=== PATIENT | female | born 1945 | race Caucasian/White ===

== ENCOUNTER 2017-08-29 09:10 | Day surgery (SDC) | payer MEDICARE, OTHER ==
[~2017-08-29] VITALS: Ht 165.1 cm; Wt 70.8 kg
[~2017-08-29 09:10] MED LIST: ALEVE220 MG PO; ARMOUR THYROID120 MG PO; ASPIR-LOW81 MG PO; MAXZIDE 37.5 MG-1 EA PO; TOPROL XL100 MG PO; TROSPIUM CHLORI20 MG PO
== END 2017-08-29 11:35 | disposition home or self-care (01) ==
LOC: DSVR 09:10 → OPS 09:10
PROVIDERS: Ophthalmology
PROC: 08RK3JZ Replacement of Left Lens with Synthetic Substitute, Percutaneous Approach (ICD-10-PCS; principal; 2017-08-29 10:00)
DX: H25.13 Age-related nuclear cataract, bilateral (principal); E03.9 Hypothyroidism, unspecified; M19.90 Unspecified osteoarthritis, unspecified site; Z90.710 Acquired absence of both cervix and uterus; Z87.891 Personal history of nicotine dependence; Z90.49 Acquired absence of other specified parts of digestive tract; Z98.890 Other specified postprocedural states; Z88.7 Allergy status to serum and vaccine; Z88.8 Allergy status to other drugs, medicaments and biological substances; Z79.1 Long term (current) use of non-steroidal anti-inflammatories (NSAID); Z79.82 Long term (current) use of aspirin; Z79.899 Other long term (current) drug therapy
CPT/HCPCS: J2250

== ENCOUNTER 2017-09-12 09:26 | Day surgery (SDC) | payer MEDICARE, OTHER ==
[~2017-09-12] VITALS: Ht 162.6 cm; Wt 70.8 kg
== END 2017-09-12 11:39 | disposition home or self-care (01) ==
LOC: DSVR 09:26 → OPS 09:26 → DS 10:30 → OPS 11:30
PROVIDERS: Ophthalmology
PROC: 08RJ3JZ Replacement of Right Lens with Synthetic Substitute, Percutaneous Approach (ICD-10-PCS; principal; 2017-09-12 10:30)
DX: H25.11 Age-related nuclear cataract, right eye (principal); I10 Essential (primary) hypertension; E03.9 Hypothyroidism, unspecified; M19.90 Unspecified osteoarthritis, unspecified site; M54.2 Cervicalgia; M54.9 Dorsalgia, unspecified; R12 Heartburn; Z90.710 Acquired absence of both cervix and uterus; Z87.891 Personal history of nicotine dependence; Z90.49 Acquired absence of other specified parts of digestive tract; Z98.890 Other specified postprocedural states; Z88.7 Allergy status to serum and vaccine; Z88.8 Allergy status to other drugs, medicaments and biological substances; Z91.011 Allergy to milk products; Z79.82 Long term (current) use of aspirin; Z79.899 Other long term (current) drug therapy; Z79.1 Long term (current) use of non-steroidal anti-inflammatories (NSAID)
CPT/HCPCS: J2250

== ENCOUNTER 2021-12-16 16:04 | Observation (INO) | payer MEDICARE, OTHER ==
[~2021-12-16] VITALS: Ht 162.6 cm; Wt 73.1 kg
[2021-12-16] MEDS ORDERED: DILTIAZEM ER420 MG PO (16:22)
[2021-12-16] MEDS ORDERED: ARMOUR THYROID30 MG PO (16:22)
[2021-12-16] MEDS ORDERED: ESTRADIOL42.5 GM VG (16:22)
[2021-12-16] MEDS ORDERED: HYDRALAZINE HCL10 MG PO (16:23)
[2021-12-16] MEDS ORDERED: MAGNESIUM400 M1 PO (16:23)
[2021-12-16] MEDS ORDERED: ONDANSETRON ODT8 MG PO (18:43)
--- NOTE | 2021-12-16 21:31 | NUR ---
ADMISSION PROCESS COMPLETE. PT ARRIVES TO FLOOR VIA STRETCHER. PT ABLE TO STAND, WALK TO BATHROOM, AND BACK TO BED. PT REPORTS DIZZINESS WITH TRANSFER. PT ORIENTED TO ROOM AND POC FOR THIS SHIFT. IV FLUSHED WITH 10 ML NS. WNL. IVF INFUSING ORDERED. ICE WATER PROVIDED. CALL LIGHT IN PT'S REACH, PT EDUCATION PROVIDED REGARDING CALL LIGHT USE. PT STATES UNDERSTANDING. PT DENIES FURTHER NEEDS AT THIS TIME.
--- NOTE | 2021-12-16 22:00 | NUR ---
PATIENT ADMISISON COMPLETED BY LINUS ALBRECHT RN. PATIENT ASSISTED TO THE RESTROOM A 1PA. PATIENT ABLE TO VOID. VITALS TAKEN AND RECORDED. PATIENTS IV INFUSING PER ORDER. UPDATED PATIENT ON PLAN OF CARE. PATIENT IS AAOX4. PATIENT DENIES ANY PAIN OR NAUSEA. NO FURTHER NEEDS NOTED. CALL LIGHT IN REACH.
--- NOTE | 2021-12-16 23:21 | NUR ---
PATIENT UP TO THE RESTROOM A 1PA. PATIENT INCONT STOOL. STOOL SAMPLE SENT. PATIENT REPORTS NAUSEA, PRN NAUSEA MEDS GIVEN PER ORDER. IVINFUSING PER ORDER. PATIENT IS BACK IN BED RESTING. PATIENT REPORTS PAIN IN HER MID LOWER BACK, NO ABRASION OR BRUISE NOTED. PATIENT STATED "ITS FROM MY FALL". PATIENT REPORTS "AND CRAMPS" FROM HER "L[place]SE POOPS". PATIENT DENIES THE NEED FOR MEDICATIONS FOR HER CRAMPS. NO FURTHER NEEDS NOTED. CALL LIGHT IN REACH.
--- NOTE | 2021-12-17 01:01 | NUR ---
PATIENT IS RESTING IN BED WITH EYES CLOSED, RR 17. CALL LIGHT IN REACH.
--- NOTE | 2021-12-17 02:04 | NUR ---
PATIENTS VITALS TAKEN AND RECORDED. INTAKE AND OUTPUT RECORDED. PATIENT DENIES ANY PAIN OR NAUSEA. NO FURTHER NEEDS NOTED. CALL LIGHT IN REACH.
--- NOTE | 2021-12-17 03:09 | NUR ---
PATIENT ASSISTED TO THE RESTROOM A SBA. PATIENT ABLE TO VOID AND SOME INCONT OF URINE. FRESH ATTEND PROVIDED. PATIENT DID NOT HAVE A BM AT THIS TIME. PATIENT IS BCAK IN BED RESTING. SCDS IN USE. IV INFUSING PER ORDER. PATIENT DENIES ANY PAIN OR NAUSEA. NO FURTHER NEEDS NOTED. CALL LIGHT IN REACH.
--- NOTE | 2021-12-17 06:26 | NUR ---
ORHTOSTICS COMPLETED. PATIENT TOELRATED ACTIVITY WELL. PATIENT ASSISTED TO RESTROOM A SBA. PATIENT ABLE TO VOID. PASSING LOTS OF GAS NO BM AT THIS TIME. PATIENT IS BACK IN BED RESTING. PATIENT DENIES ANY PAIN OR NAUSEA NO FURTHER NEEDS NOTED. CALL LIGHT IN REACH. PATIENT IS SITTING ON THE EDGE OF THE BED. BELONGINGS ARE WITHIN REACH.
--- NOTE | 2021-12-17 06:30 | NUR ---
CALL LIGHT ON. pt UP TO TOILET. INCONT OF STOOL. SMALL VOID. pt DID OWN PERICARE. BACK TO BED. REPORTED NAUSEA, PRN MED GIVEN (SEE MAR). pt SITTING ON BED. CALL LIGHT WITHIN REACH.
--- NOTE | 2021-12-17 07:55 | NUR ---
PT AWAKE IN BED, STATES HER NAUSEA HAS IMPROVED. MORNING ASSESSMENT COMPLETE. PT DENIES NEEDS AT THIS TIME. CALL LIGHT WITHIN REACH.
--- NOTE | 2021-12-17 10:19 | NUR ---
PT RESTING QUIETLY IN BED WITH EYES CLOSED, RESPIRATIONS EVEN AND UNLABORED. 2ND LR BAG RUNNING AT 150ML/HR. CALL LIGHT WITHIN REACH.
[2021-12-17] MEDS ORDERED: MAG DELAY64 M1 PO (11:17)
[2021-12-17] MEDS ORDERED: ONDANSETRON ODT4 MG SL (11:18)
[2021-12-18] MEDS ORDERED: VANCOCIN HCL125 MG PO (12:18)
--- NOTE | 2021-12-18 12:32 | EKG ---
[facility] [address] [place] [address] Signed Normal sinus rhythm Anteroseptal infarct , age undetermined Abnormal ECG No previous ECGs available Confirmed by KAT GONZALEZ MD ([id number]) on 12/18/2021 12:32:02 PM Electronically Signed By: KAT GONZALEZ MD 12/18/211231 PATIENT NAME: EMANUEL PELAYO CRUZ Electrocardiogram DATE OF : 41 PHYSICIAN: KAT GONZALEZ MD REPORT #: [id number] REPORT IS CONFIDENTIAL AND NOT TO BE RELEASED WITHOUT AUTHORIZATION
== END 2021-12-17 13:00 | disposition home or self-care (01) ==
LOC: ED 16:04 → MS 16:05
PROVIDERS: ADMIT Internal Medicine; ATTEND Internal Medicine
DX: I95.1 Orthostatic hypotension (principal); A08.4 Viral intestinal infection, unspecified; I10 Essential (primary) hypertension; E03.9 Hypothyroidism, unspecified; D69.6 Thrombocytopenia, unspecified; K21.9 Gastro-esophageal reflux disease without esophagitis; M50.31 Other cervical disc degeneration, high cervical region; Z88.7 Allergy status to serum and vaccine; Z88.8 Allergy status to other drugs, medicaments and biological substances; Z88.1 Allergy status to other antibiotic agents; Z91.011 Allergy to milk products; Z20.822 Contact with and (suspected) exposure to COVID-19
CPT/HCPCS: 36415; 70450; 72125; 80053; 85025; 87502; 93005; 93010; A9270; C9803; J2405; J7030; J7121; U0003